=== PATIENT | male | born 1950 | race Caucasian/White ===

== ENCOUNTER 2018-09-24 12:33 | Emergency (ER) | payer MEDICARE ==
[~2018-09-24] VITALS: Ht 175.3 cm; Wt 79.0 kg
[2018-09-24 12:43] VITALS: BP 131/80
[2018-09-24] MEDS ORDERED: HYDR-3240 PO (13:00)
[2018-09-24] MEDS ORDERED: POTA10TA5 PO (13:00)
[2018-09-24] MEDS ORDERED: FURO-93 PO (13:00)
[2018-09-24] MEDS ORDERED: CARI350T PO (13:00)
[2018-09-24] MEDS ORDERED: ASPI-496 PO (13:00)
[2018-09-24] MEDS ORDERED: HYDR25TA11 PO (13:00)
[2018-09-24] MEDS ORDERED: AMIL1TAB PO (13:00)
[2018-09-24] MEDS ORDERED: DICL50TA2 PO (13:00)
[2018-09-24] MEDS ORDERED: TRAZODONE (13:00)
[2018-09-24] MEDS ORDERED: ESOM40CA PO (13:00)
[2018-09-24] MEDS ORDERED: MELA3TAB2 PO (13:00)
[2018-09-24] MEDS ORDERED: ALLER-TEC (13:00)
== END 2018-09-24 13:20 | disposition home or self-care (01) ==
LOC: ED 13:15
DX: S01.511D Laceration without foreign body of lip, subsequent encounter (principal); K21.9 Gastro-esophageal reflux disease without esophagitis; I10 Essential (primary) hypertension; X58.XXXD Exposure to other specified factors, subsequent encounter
CPT/HCPCS: 99282

== ENCOUNTER → 2019-12-25 | Outpatient (CLI) | payer MEDICARE ==
[~2019-12-25] MED LIST: ALLER-TEC; AMIL1TAB PO; ASPI-496 PO; ATOR20TA37 PO; AZEL137S4 NAS; AZEL23SP NS; CARI350T PO; DICL50TA2 PO; ESOM40CA PO; FLUT9.9S NS; FURO-93 PO; HYDR-3240 PO; HYDR-826 PO; MELA3TAB31 PO; MULT-449 PO; POTA10TA5 PO; TIZA4TAB2 PO; TRAZ-175 PO; TRAZODONE; Vitamin D3 PO
[2019-12-25 09:42] LABS: ALANINE AMINOTRANSFERASE 58 U/L (12-78); ANION GAP 6 mmol/L (5-15); CALCIUM 9.8 mg/dL (8.5-10.1); CHLORIDE 104 mmol/L (98-107); CREATININE 1.03 mg/dL (0.7-1.3)
[2019-12-25 09:44] LABS: ALKALINE PHOSPHATASE 76 U/L (45-117); BILIRUBIN,TOTAL 0.4 mg/dL (0.2-1.0); TOTAL PROTEIN 7.3 g/dL (6.4-8.2)
== END | disposition home or self-care (01) ==
LOC: STAR 08:42
PROVIDERS: ATTEND Internal Medicine Geriatric Medicine
DX: Z01.818 Encounter for other preprocedural examination (principal); K31.7 Polyp of stomach and duodenum; I44.0 Atrioventricular block, first degree
CPT/HCPCS: 36415; 80053; 93005

== ENCOUNTER → 2019-12-27 | Outpatient (CLI) | payer MEDICARE | END | disposition home or self-care (01) | LOC: STAR 11:49 | PROVIDERS: ATTEND Internal Medicine Geriatric Medicine | DX: Z01.818 Encounter for other preprocedural examination (principal); Z11.59 Encounter for screening for other viral diseases | CPT/HCPCS: 36415; 87635 ==

== ENCOUNTER 2019-12-31 06:39 | Day surgery (SDC) | payer MEDICARE ==
[~2019-12-31] VITALS: Ht 175.3 cm; Wt 94.0 kg
[2019-12-31] MEDS ORDERED: PROPOFOL 10 MG/ML, 20ML ONE (06:59)
[2019-12-31] MEDS ORDERED: LACTATED RINGERS 1,000 ML IV SCH (06:59)
[2019-12-31] MEDS ORDERED: MIDAZOLAM 1 MG/ML, 2ML ONE (06:59)
[2019-12-31] MEDS ORDERED: ONDANSETRON 2MG/ML, 2ML ONE (06:59)
[2019-12-31] MEDS ORDERED: DEXAMETHASONE 4 MG/ML, 1ML ONE (06:59)
[2019-12-31] MEDS ORDERED: CEFAZOLIN 1,000 MG ONE (06:59)
[2019-12-31] MEDS ORDERED: FENTANYL PF 100 MCG/2ML ONE (06:59)
[2019-12-31] MEDS ORDERED: CHLORHEXIDINE 15 ML UDC MM ONE (07:00)
[2019-12-31 07:01] VITALS: BP 119/77
[2019-12-31] MEDS ORDERED: MEPERIDINE/PF 25MG/0.5ML IVPush PRN (07:30)
[2019-12-31] MEDS ORDERED: FENTANYL PF 100 MCG/2ML IV PRN (07:30)
[2019-12-31] MEDS ORDERED: OXYcodone 5 MG/5 ML ORAL.SOL UDC PO PRN (07:30)
[2019-12-31] MEDS ORDERED: PROMETHAZINE 25 MG/ML, 1ML IVPush PRN (07:30)
[2019-12-31] MEDS ORDERED: SUCCINYLCHOLINE 20 MG/ML, 10ML ONE (07:55)
[2019-12-31] MEDS ORDERED: EPINEPHRINE SYRINGE 0.1 MG/ML, 10ML ONE (09:00)
== END 2019-12-31 10:40 | disposition home or self-care (01) ==
LOC: OUT 06:39
PROVIDERS: ATTEND Internal Medicine Geriatric Medicine
DX: K31.7 Polyp of stomach and duodenum (principal); K25.9 Gastric ulcer, unspecified as acute or chronic, without hemorrhage or perforation; K21.9 Gastro-esophageal reflux disease without esophagitis; I10 Essential (primary) hypertension; E66.9 Obesity, unspecified; Z87.891 Personal history of nicotine dependence; Z88.2 Allergy status to sulfonamides
CPT/HCPCS: 43236; 43251; 43259; 88305; A4648; J0330; J0690; J1100; J2250; J2405; J2704; J3010; J7120